=== PATIENT | male | born 1995 | race Caucasian/White ===

== ENCOUNTER 2019-06-17 19:32 | Emergency (ER) | payer OTHER ==
[~2019-06-17] VITALS: Ht 190.5 cm; Wt 97.1 kg
== END 2019-06-17 21:25 | disposition home or self-care (01) ==
LOC: ED 19:32 → EDBD 19:32 → ED 21:25
DX: S09.90XA Unspecified injury of head, initial encounter (principal); W22.8XXA Striking against or struck by other objects, initial encounter; F17.200 Nicotine dependence, unspecified, uncomplicated; Z88.5 Allergy status to narcotic agent; Z88.8 Allergy status to other drugs, medicaments and biological substances
CPT/HCPCS: 70450; 99284-25